=== PATIENT | male | born 2000 | race Hispanic/Latino ===

== ENCOUNTER 2024-08-19 21:30 | Emergency (ER) | payer SELFPAY ==
[~2024-08-19] VITALS: Ht 170.2 cm; Wt 79.4 kg
[2024-08-20] MEDS: DiphenhydrAMINE HCL 25 MG CAPSULE PO ONE (00:09)
[2024-08-20] MEDS: FAMOTIDINE 20MG TAB PO ONE (00:09)
[2024-08-20] MEDS: ibuPROFEN 800 MG TAB PO ONE (00:09)
[2024-08-20] MEDS: teTANUS/diphthERIA TOXOID [ADULT] 0.5 ML VIAL IM ONE (00:11)
[2024-08-20] MEDS ORDERED: IBUP-2070 PO (00:36)
--- NOTE | 2024-08-20 00:38 | ERN ---
ED Note History of Present Illness Stated Complaint: INSECT STING Chief Complaint: Insect Bite Time Seen by MD: 21:44 Time Seen by Midlevel: 21:44 Dictation: The patient is a 24-year-old male with a history of appendectomy who presents to the emergency department with a scorpion bite to the left upper arm onset 30 minutes prior to arrival. Patient reports pain and some numbness to site. Unknown last tetanus. Patient denies any recent travel. Allergies: Coded Allergies: No Known Allergies (Unverified Allergy, Unknown, 08/19/24) Home Meds Active Scripts Ibuprofen (Ibuprofen) 600 Mg Tablet, 600 MG PO Q6H PRN for PAIN, #10 TAB Prov:GREGOR MCCLOUD MASTER CONTROL TECHNICIAN 08/20/24 Past Medical History Past Medical History: No Pertinent History Surgical History: Appendectomy RN Note Reviewed/Agreed w/PFSH: Yes Review of System Dictation Constitutional: Negative for fever,chills, and weight loss Eyes: Negative for injury, pain,redness, and discharge ENT: Negative for injury,pain or swelling Cardiovascular: Negative for chest pain, palpitations, and edema Respiratory: Negative for shortness of breath, cough, and wheezing, Abdomen/GI: Negative for abdominal pain, nausea, vomiting, diarrhea, and constipation Back: Negative for injury and pain : Negative for injury, bleeding and discharge MS/Extremity: Negative for injury and deformity Skin: Positive for left upper arm erythema Neuro: Negative for headache, weakness, numbness, tingling, and seizure Psych: Negative for suicide ideation, homicidal ideation, and hallucinations Initial Vital Sign VS Vital Signs Date Time Temp Pulse Resp B/P (MAP) Pulse Ox O2 Delivery O2 Flow Rate FiO2 08/19/24 21:31 97.5 90 20 139/86 100 Room Air Physical Exam Dictation Vital Signs reviewed General Appearance: Alert, oriented x 3, no acute distress, well developed, n ourished. Head and Face: non-traumatic. Eyes: PERRL, pink conjunctivas, eyelid no trauma, anterior chamber with arcus senilis. Ears: Pinnas intact and no signs of trauma or erythema ear canals clear and no discharge TM no erythema Nose: No discharge, no bleeding. Oropharynx: Mouth normal, tongue pink. pharynx clear,no erythema, tonsils no exudates, no abscesses noted, mucous m embrane moist Neck: Supple, non-tender, no thyromegaly, no masses, no JVD, no bruits Breast:Deferred Chest:No tenderness, no crepitus, no paradoxical movement, no retractions Lungs:Clear, well-ventilated, symmetric, no rales, no wheezing, no rhonchi, no stridor, good breath sounds bilaterally Heart: Regular rate, regular rhythm, no murmur, no gallops Vascular: no peripheral edema, Abdomen: Soft, positive bowel sounds, nondistended, no guarding, nontender, no rebound, no masses no hepatomegaly, no splenomegaly, no Mccarthy's sign, no hernias. Rectal: Deferred Genital: Deferred Neurological: Normal speech, motor function intact, sensory function intact Musculoskeletal: Neck nontender, full range of motion, back nontender, full range of motion, Extremities: nontender, full range of motion Skin: Color pink, dry, no turgor, no rash, no lacerations, no abrasions, no contusions. Left upper arm erythema, no swelling, Lymphatic: Deferred Results (Laboratory/Radiology) Labs Reviewed?: Yes ED Course ED Course Orders Procedure Category Date Status Time Ibuprofen 800 Mg Tab PHA 08/19/24 Complete (Motrin) 22:00 Diphenhydramine Hcl PHA 08/19/24 Complete (Benadryl Cap) 22:00 Famotidine 20mg Tab PHA 08/19/24 Complete (Pepcid 20mg Tab) 22:00 Tetanus,Diphtheria PHA 08/19/24 Complete Tox [Adult] (Diphther 22:00 Current Medications Medications (Trade) Dose Ordered Sig/Ángel Route PRN Reason Start Time Stop Time Status Last Admin Dose Admin Diphenhydramine HCl (BENAdryl CAP) 25 mg ONCE ONCE PO 08/19/24 22:00 08/19/24 22:01 DC 08/20/24 00:09 Famotidine (Pepcid 20mg Tab) 20 mg ONCE ONCE PO 08/19/24 22:00 08/19/24 22:01 DC 08/20/24 00:09 Ibuprofen (moTRIN) 800 mg ONCE ONCE PO 08/19/24 22:00 08/19/24 22:01 DC 08/20/24 00:09 Tetanus/ Diphtheria Toxoids Adsorbed (DiphthERIA-teTANUS TOXOID [ADULT]/ DECAVAC) 0.5 ml ONCE ONCE IM 08/19/24:00 08/19/24 22:01 DC 08/20/24 00:11 Vital Signs Date Time Temp Pulse Resp B/P (MAP) Pulse Ox O2 Delivery O2 Flow Rate FiO2 08/19/24 21:31 97.5 90 20 139/86 100 Room Air Medical Decision Making MDM The patient is a 24-year-old male with a history of appendectomy who presents to the emergency department with a scorpion bite to the left upper arm onset 30 minutes prior to arrival. Patient reports pain and some numbness to site. Unknown last tetanus. Patient denies any recent travel. Patient's arm was cleaned with soap and water. Tdap updated. Patient pain control with ibuprofen. Patient's arm neurovascularly intact. Patient has tolerated p.o. intake. Patient with patent airway, in no acute distress, nontoxic appearance. Patient will be discharged and instructed to follow up primary doctor. Differential diagnosis: Cellulitis, allergic reaction, scorpion bite Need for hospitalization: Patient does not meet criteria for hospitalization. There are no social concerns with this patient. DX & DISP Disposition: Discharge Departure Impression: Primary Impression: Scorpion sting Condition: Stable Scripts Ibuprofen (Ibuprofen) 600 Mg Tablet 600 MG PO Q6H PRN for PAIN, #10 TAB Prov: GREGOR MCCLOUD MASTER CONTROL TECHNICIAN 08/20/24 Additional Instructions: Please follow up with the primary doctor in 1-2 days. You develop severe pain, trouble breathing, drooling, extreme shaking, please return to ER. FOLLOW-UP WITH PRIMARY CARE PROVIDER IN 1 TO 2 DAYS. TAKE MEDICATIONS DIRECTED HERE IN THE EMERGENCY ROOM. OKAY TO CONTINUE HOME MEDICATIONS UNLESS OTHERWISE DISCUSSED DURING YOUR VISIT IN THE EMERGENCY ROOM TODAY. RETURN TO YOUR NEAREST EMERGENCY ROOM IF SYMPTOMS WORSEN OR IF THERE IS NO IMPROVEMENT. CALL 911 IF YOU NEED IMMEDIATE ASSISTANCE. TAKE TYLENOL OR MOTRIN [id number] NEEDED AND IF NO CONTRAINDICATIONS ARE PRESENT. INCREASE ORAL HYDRATION. A WOUND CULTURE OR URINE CULTURE WAS ORDERED HERE IN THE EMERGENCY ROOM DEPARTMENT PLEASE FOLLOW-UP WITH PRIMARY CARE PROVIDER AND ADVISE THEM TO GET REPEAT PORTS FROM OUR FACILITY. IF YOU HAD ANY LILY WRAP/SPLINTS THAT WERE APPLIED HERE, PLEASE DO NOT REMOVE THEM UNTIL YOU SEE YOUR PRIMARY CARE OR SPECIALTY. Referrals: SELF,REFERRAL (PCP) Time of Disposition: 00:37 I have reviewed the case, and I agree with, Diagnosis and Plan GREGOR MCCLOUD [facility] August 20, 2024 00:38
[2024-08-20 00:40] VITALS: BP 130/79; PULSE 85; RESP 20; TEMP 97.9; O2SAT 100
== END 2024-08-20 00:46 | disposition home or self-care (01) ==
LOC: EDH 21:30
DX: T63.2X1A Toxic effect of venom of scorpion, accidental (unintentional), initial encounter (principal); Z90.49 Acquired absence of other specified parts of digestive tract; Y92.89 Other specified places as the place of occurrence of the external cause
CPT/HCPCS: 99284; 90714; 90471; Q0163; 96372